=== PATIENT | female | born 1955 | race Caucasian/White ===

== ENCOUNTER → 2017-07-16 | Outpatient (CLI) | payer OTHER | LOC: ULTRA 12:58 → BC 12:58 | DX: R92.8 Other abnormal and inconclusive findings on diagnostic imaging of breast (principal); N63.20 Unspecified lump in the left breast, unspecified quadrant ==

== ENCOUNTER 2017-07-27 07:04 | Day surgery (SDC) | payer OTHER ==
[~2017-07-27] VITALS: Ht 170.2 cm; Wt 85.3 kg
--- NOTE | ~2017-07-27 | S ---
[facility] [address] [address] SURGICAL PATH RPT PROCEDURE Name: MILADY HASKINS Room #: DEP [facility] [place].R.#: [id number] Admission: 07/27/17 Date of : 53 Discharge: 07/27/17 Report #: [id number] Path Case #: [id number] PATHOLOGY REPORT DRAFT COLLECTION DATE: 07/27/2017 RECEIVED DATE: 07/27/2017 SPECIMEN(S) RECEIVED: A.Left breast mass
--- NOTE | ~2017-07-27 | O ---
[facility] [place] [address] OPERATIVE REPORT Name: MILADY HASKINS EVELYN Room #: DEP [facility] [place] M.R.#: [id number] Admission: 07/27/17 Attend Phys: Miki Moreno MD Discharge: 07/27/17 Date of : 53 Report #: [id number] THIS REPORT FOR: //name// CC: Miki Valentine MD PREOPERATIVE DIAGNOSIS: Left breast mass consistent with a large lipoma at the 6 o'clock position. POSTOPERATIVE DIAGNOSIS: Left breast mass/intramammary lipoma measuring 4 cm. PROCEDURES PERFORMED: Excision of left breast mass. ANESTHESIA: IV sedation, local 0.25% Marcaine. COMPLICATIONS: None. ESTIMATED BLOOD LOSS: 5 mL. PROCEDURE NOTE: With the patient under IV sedation, the left breast prepped and draped in sterile fashion. The mass is located at 6 o'clock position about 1/2 inch to an inch above the inframammary fold. To make the incision more cosmetic, an incision was made in the inframammary fold. The incision was then carried through the skin and subcutaneous tissue. A 0.25% Marcaine was used to dissect skin. The timeout was performed. The initial dissection was in the space just above the chest wall. It turned out the lipoma was not on the chest wall, but more superficially in the breast tissue. Dissection was carried into the breast and then a well defined lipoma was found. This lipoma was fairly mobile, was difficult to feel some points, but there is a distinct mass here. After dissecting the surface of the lipoma, the rest of it was found and easily delivered out of the breast. It measured about 4 cm. Towards the lateral aspect of it, it did kind of run into the breast tissue and part of the breast tissue was excised. Cautery was used for the dissection. Cautery was then used for hemostasis. The biopsy cavity was irrigated out. No bleeding was identified. Subcutaneous tissue was closed with 4-0 Monocryl. Skin was closed with 5-0 PDS running subcuticular fashion, Steri-Strips, 4 x 4's, Op-Site was used for dressing. The patient tolerated the procedure well and was taken to recovery room. <ELECTRONICALLY SIGNED> By: Miki Moreno MD 08/07/17 1310 [id number] Miki Moreno MD /nt
[~2017-07-27 07:04] MED LIST: ALDACTONE25 MG PO; LEXAPRO20 MG PO; MULTIVITAMINS1 EAC7 PO; OMEPRAZOLE 20 M20 M1 PO; SYNTHROID125 MC1 PO; WELLBUTRIN XL150 MG PO
[2017-07-27 09:30] LABS: HEMATOCRIT 42.4 % (37.0-47.0); HEMOGLOBIN 14.1 gm/dL (12.0-15.0)
[2017-07-27 09:37] LABS: CALCIUM 8.7 mg/dL (8.5-10.1); POTASSIUM 4.1 mmol/L (3.5-5.1)
[2017-07-27 10:42] VITALS: BP 129/84
[2017-07-27] MEDS ORDERED: NORCO 5-325 TA1 EACH PO (11:27)
[2017-07-27 11:46] VITALS: BP 129/84
== END 2017-07-27 12:30 | disposition home or self-care (01) ==
LOC: OR 07:04 → TBA 07:04 → OR 12:30
PROVIDERS: Surgery
DX: D17.79 Benign lipomatous neoplasm of other sites (principal); Z88.2 Allergy status to sulfonamides; F32.9 Major depressive disorder, single episode, unspecified; K21.9 Gastro-esophageal reflux disease without esophagitis; E03.9 Hypothyroidism, unspecified; Z98.890 Other specified postprocedural states
CPT/HCPCS: 50010; 50101; 50386; 50417; 56525; 56526; 62110; 62850; 70005

== ENCOUNTER → 2019-05-29 | Outpatient (CLI) | payer OTHER ==
[~2019-05-29] MED LIST changes: +NORCO 5-325 TA1 EACH PO
== END ==
LOC: RAD 10:44
DX: Z12.31 Encounter for screening mammogram for malignant neoplasm of breast (principal)

== ENCOUNTER → 2019-12-24 | Outpatient (CLI) | payer OTHER | LOC: CAT 10:38 | PROVIDERS: ATTEND Internal Medicine Hematology & Oncology | DX: C91.10 Chronic lymphocytic leukemia of B-cell type not having achieved remission (principal); K57.30 Diverticulosis of large intestine without perforation or abscess without bleeding; R59.0 Localized enlarged lymph nodes; D25.9 Leiomyoma of uterus, unspecified; M47.816 Spondylosis without myelopathy or radiculopathy, lumbar region ==

== ENCOUNTER → 2020-07-21 | Outpatient (CLI) | payer OTHER | LOC: BC 11:34 | PROVIDERS: ATTEND Neuromusculoskeletal Medicine & OMM | DX: Z12.31 Encounter for screening mammogram for malignant neoplasm of breast (principal) ==

== ENCOUNTER → 2021-05-18 | Outpatient (CLI) | payer OTHER | LOC: RAD 10:57 | PROVIDERS: ATTEND Nurse Practitioner | DX: J98.11 Atelectasis (principal); J90 Pleural effusion, not elsewhere classified ==

== ENCOUNTER → 2021-05-20 | Outpatient (CLI) | payer OTHER ==
[2021-05-20 13:17] LABS: HEMOGLOBIN 9.8 gm/dL (12.0-15.0); MCH 30.6 pg (26.0-34.0); RBC 3.22 mil/uL (4.20-5.00)
[2021-05-20 13:20] LABS: MCHC 30.8 g/dL (28.0-37.0); MCV 99.3 fL (80.0-100.0); RDW 19.2 % (10.5-14.5)
[2021-05-20 13:24] LABS: INR 1.08; PROTIME 11.7 Seconds (10.5-12.1)
[2021-05-20 13:40] LABS: WBC 258.8 thou/uL (4.0-11.0)
== END ==
LOC: ULTRA 12:06
PROVIDERS: ATTEND Nurse Practitioner
DX: R91.8 Other nonspecific abnormal finding of lung field (principal); J90 Pleural effusion, not elsewhere classified

== ENCOUNTER 2021-05-25 17:54 | Inpatient (IN) | payer OTHER ==
[~2021-05-25] VITALS: Ht 167.6 cm; Wt 74.8 kg
[~2021-05-25 17:54] MED LIST changes: -MULTIVITAMINS1 EAC7 PO; +SUPER THERAVIT1 EACH PO
[2021-05-25 18:11] VITALS: BP 112/61
--- NOTE | 2021-05-25 18:29 | NUR ---
PT REPORTS DX OF CLL, AWAITING ONCOLOGY APT ON 05/31.
[2021-05-25 18:55] LABS: APTT 30.2 Seconds (24.5-32.8); INR 1.09; PROTIME 11.8 Seconds (10.5-12.1)
[2021-05-25 19:01] LABS: HEMOGLOBIN 9.3 gm/dL (12.0-15.0); MCH 30.3 pg (26.0-34.0); RBC 3.07 mil/uL (4.20-5.00); RDW 19.7 % (10.5-14.5)
[2021-05-25 19:08] LABS: ALBUMIN 3.5 g/dL (3.4-5.0); CALCIUM 8.7 mg/dL (8.5-10.1); MAGNESIUM 2.2 mg/dL (1.8-2.4); TOTAL BILIRUBIN 0.4 mg/dL (0.2-1.0)
[2021-05-25 19:18] LABS: POTASSIUM 7.9 mmol/L (3.5-5.1)
[2021-05-25 20:14] LABS: WBC 308.8 thou/uL (4.0-11.0)
[2021-05-25] MEDS ORDERED: VALACYCLOVIR1000 MG PO (21:35)
[2021-05-25] MEDS ORDERED: ROSUVASTATIN CA10 MG PO (21:35)
[2021-05-25] MEDS ORDERED: SERTRALINE HCL100 MG PO (21:35)
[2021-05-25 22:43] VITALS: BP 124/64
[2021-05-26 02:56] VITALS: BP 109/56
--- NOTE | 2021-05-26 04:49 | NUR ---
PT ADMITTED TO 3W ROOM 353, ARRIVED TO UNIT AT APPROX 2345 ACCOMPANIED BY ED STAFF. ADMISSION ASSESSMENTS CHARTED, ADMISSION PACKET PROVIDED. PT IS A&OX4 AND ABLE TO COMMUNICATE ALL WANTS AND NEEDS TO STAFF. PT IS AMBULATORY, STEADY GAIT NOTED WITHOUT THE USE OF ASSISTIVE DEVICES. PT WITH KNOWN HISTORY OF CHRONIC LYMPHOCYTIC LEUKEMIA AND RECURRING PLEURAL EFFUSIONS. SHE DOES HAVE C/O SHORTNESS OF AIR, THOUGH AT THIS TIME IS NOT REQUIRING SUPPLEMENTAL OXYGEN, MAINTAINING O2 SATS 91-95% ON ROOM AIR. IV ANTIBIOTICS RUNNING THROUGHOUT THE SHIFT. PT HAS SLEPT MOST OF THE NIGHT SINCE ARRIVING TO THE UNIT. VS HAVE REMAINED STABLE THROUGHOUT THE SHIFT. WILL CONTINUE TO OBSERVE FOR CHANGES
[2021-05-26 05:19] LABS: CALCIUM 7.7 mg/dL (8.5-10.1)
[2021-05-26 05:21] LABS: HEMATOCRIT 24.8 % (37.0-47.0); HEMOGLOBIN 7.6 gm/dL (12.0-15.0); MCHC 30.8 g/dL (28.0-37.0); MCV 100.5 fL (80.0-100.0); RBC 2.46 mil/uL (4.20-5.00); RDW 19.7 % (10.5-14.5)
[2021-05-26 05:37] LABS: WBC 253.6 thou/uL (4.0-11.0)
--- NOTE | 2021-05-26 07:07 | EKG ---
[address] [place] [address] ELECTROCARDIOGRAM REPORT Name: HASKINSMILADYISABELLA RIVAS Room #: 353-P ADM IN M.R.#: [id number] Admission: 05/25/21 Attend Phys: Tho Morley MD Discharge: Date of : 53 Report #: [id number] [facility] ED Test Date: 2021-05-25 Test Time: 18:23:18 Pat Name: MILADY HASKINS Department: Room: [facility] Gender: F Clamshell Engineer: : 1955 Requested By: Mariaelena Clayton Order Number: [id number] MD: Roosevelt Sotelo Measurements Intervals [place] Rate: 100 P: 54 RI: 145 QRS: -33 QRSD: 77 T: 22 QT: 391 QTc: 505 Interpretive Statements Sinus tachycardia Multiple ventricular premature complexes Left axis deviation Anteroseptal infarct, age indeterminate No previous ECG available for comparison Electronically Signed On 05-26-2021 7:07:39 MANAGER WASTEWATER by Roosevelt Soetlo [email or web address] <ELECTRONICALLY SIGNED> By: Roosevelt Sotelo MD, [facility] 05/26/21 0707 1823 22 Roosevelt Sotelo MD, FACC /EPI
[2021-05-26 08:30] VITALS: BP 130/65
--- NOTE | 2021-05-26 10:18 | NUR ---
RD consult received for high nutrition screening risk. Admit with CLL, acute respiratory failure, weakness. Pt reports fair appetite but did eat 100% of gambian toast and sausage this am. Asking for coffee-has heart healthy diet order-will change diet to regular. Reports gradual wt loss 20 lb over past year=11% moderate loss. Would like to try just 1 ensure per day. Low nutrition risk with appropriate nutrition interventions in place
[2021-05-26 11:33] VITALS: BP 102/44
--- NOTE | 2021-05-26 15:33 | NUR ---
PER MITCHEL, KB INITIAL ASSESSMENT: MITCHEL spoke with nursing and attending physician. Pt was admitted from home due to dyspnea, anemia, pleural effusion. Pt with hx of leukemia. Hem/onc, pulm and CTS consulted. Chest tube placed today. Pt had recent hospital stay at [facility]. Per nursing, pt is alert/orientated and lives at home. MITCHEL placed call to pt's room. No answer. Therapy evals ordered to assess for discharge needs. MITCHEL is following to assist as needed with discharge planning. SESAR Chacon
[2021-05-26 15:56] VITALS: BP 113/54
[2021-05-26 16:28] LABS: % SATURATION 15 % (20-39); IRON 43 ug/dL (50-170); TIBC 291 ug/dL (250-450)
[2021-05-26 17:48] LABS: OBSERVED RETIC COUNT 3.23 % (0.6-2.6)
[2021-05-26 17:52] LABS: HEMATOCRIT 29.5 % (37.0-47.0); HEMOGLOBIN 8.9 gm/dL (12.0-15.0)
[2021-05-26 19:45] VITALS: BP 129/56
[2021-05-26 20:31] LABS: FOLIC ACID 24.6 ng/mL (8.6-58.9)
[2021-05-27 04:05] VITALS: BP 123/52
--- NOTE | 2021-05-27 05:41 | NUR ---
PT IS PROGRESSING SLOWLY TOWARD GOALS. PT WITH CHEST TUBE IN PLACE TO RIGHT POSTERIOR CHEST, DRAINING SANGUINEOUS DRAINAGE. PT WITH C/O PAIN AT CHEST TUBE SITE, MEDICATED X1 WITH NORCO WITH MINIMAL EFFECT, X1 WITH MORPHINE WITH GOOD EFFECT. PT STATED SHE "GOT SOME GOOD SLEEP LAST NIGHT." A&OX4, ANXIOUS, ABLE TO MAKE WANTS AND NEEDS KNOWN TO STAFF. SBA/SUPERVISION WITH TRANSFER, VOIDING PER BEDSIDE COMMODE DUE TO CHEST TUBE AND IV'S RUNNING. VSS THROUGHOUT THE SHIFT.
--- NOTE | 2021-05-27 07:21 | HC ---
[facility] [place] [address] CONSULTATION Name: MILADY HASKINS EVELYN Room #: 353-P ADM IN M.R.#: [id number] Admission: 05/25/21 Attend Phys: Tho Morley MD Discharge: Date of : 53 Report #: [id number] THIS REPORT FOR: cc: Lisbeth Biswas Beth RNP McKittrick, Richard James MD ~ cc: Tho Morley MD, Yan Valentine MD, Pasha Garcia MD DATE OF SERVICE: 05/26/2021 REASON FOR CONSULTATION: History of CLL. HISTORY OF PRESENT ILLNESS: The patient is a 66-year-old female who has been a patient of [facility] for about a year and a half. She was originally diagnosed with her CLL in 11/2019. Note that she has an IgH-V, not mutation, which is an adverse prognostic factor. At the time of diagnosis, her initial white count was around 29,000, hemoglobin 15.1 and platelets 256. She has not required therapy. She had been having progressive disease and we are getting ready to start a medicine called acalabrutinib in the near future, but she has been admitted at [facility] about 3 weeks ago, discharged on 05/10/2021. There, she was seen for shortness of air after being transferred from [facility]. She was found to have a right pleural effusion, which was loculated and possible pneumonia. She had a thoracentesis one time. When she was initially admitted there, her white count was about 300,000 and it was down to about 269,000. When she left there, her hemoglobin was 8.2 and platelets 318. Creatinine was 0.8. The patient denies fevers, chills, she does have the shortness of air, mostly a nonproductive cough, though not a big cough. No swallowing trouble. No arm or leg swelling. No diarrhea, no constipation. PAST MEDICAL HISTORY: Notable for recent HSV infection, hypothyroidism, the CLL, vitamin D deficiency, mood disorder and GERD. She also has a history of arthritis. SOCIAL HISTORY: about 3 years ago. He had worked for the [employer]. She is a never smoker. She drinks maybe two beverages per week. Not currently working. SURGICAL HISTORY: She has a history of tonsillectomy, partial thyroidectomy, lipoma resection, both knee replacements, colonoscopy and ankle surgery in the past. FAMILY HISTORY: Notable for mother with arthritis and migraines, father had colon cancer, sister had breast cancer and colon cancer. Paternal grandfather, heart disease. Maternal aunt, cancer of the breast. Paternal aunt, cancer of [address] [address] CONSULTATION Name: HASKINSMILADY EVELYN Room #: 353-P [facility] IN M.R.#: [id number] Admission: 05/25/21 Attend Phys: Tho Morley MD Discharge: Date of : 53 Report #: [id number] the breast. PHYSICAL EXAMINATION: GENERAL: The patient appears her stated age. VITAL SIGNS: Her height is 5 feet 6 or 167.6 cm, weight is 160 pounds or 72.57 kilograms. Recent blood pressure is 109/56, O2 sat 95%, respirations 20, pulse 104, temperature 98.4. MOOD: She is pleasant, alert, slightly anxious, appropriately so. HEENT: Face is symmetrical. NEUROLOGIC: Speech and thought pattern normal. Moving arms and legs. NECK: Does have some small lymph nodes in her neck and also underneath each axilla. ABDOMEN: Soft, no masses, nontender. LUNGS: Has dull sounds, right lung base. Good aeration. No use of accessory muscles, not in extremis. EXTREMITIES: Without clubbing, cyanosis or edema. LABORATORY DATA: Lab review here, has a creatinine of 1.0. Transaminases are normal. Alkaline phosphatase was 154, coags were normal. White count was 308, today 253.6; hemoglobin was 9.3, after hydration 7.6; MCV 100.5; platelets 335. Influenza negative. COVID negative. MEDICATIONS: At this time in the hospital include IV fluids, atorvastatin, calcium 20 mg daily, sertraline 100 daily, bupropion XL 150 daily, valacyclovir 500 b.i.d., famotidine 20 b.i.d., vancomycin b.i.d., levothyroxine 62.5 mcg daily, budesonide respiratory therapy b.i.d., Zosyn q. 8, ipratropium, albuterol respiratory therapy q. 4 while awake, Tylenol p.r.n., Zofran p.r.n. ASSESSMENT AND PLAN: 1. Chronic lymphocytic leukemia. Would like to start acalabrutinib once the patient is stable and able to. We will also need to give allopurinol at that time. 2. Right-sided loculated pleural effusion. Await Pulmonary and Cardiothoracic Surgery's input whether VATS procedure is warranted. 3. Possible respiratory infection, currently receiving vancomycin and Zosyn. Defer to others. 4. Anemia. We will check iron, B12, folate, retic count, and LDH. Not transfuse unless below 7 or if needed before surgery. 5. Hyperlipidemia, statin. 6. Hypothyroid. Replace. 6. Herpes simplex virus infection. Prophylaxis, valacyclovir 500 b.i.d. [facility] [address] [place] [address] CONSULTATION Name: MILADY HASKINS EVELYN Room #: 353-P ADM IN M.R.#: [id number] Admission: 05/25/21 Attend Phys: Tho Morley MD Discharge: Date of : 53 Report #: [id number] 7. Gastroesophageal reflux disease. Pepcid. 8. Anxiety. Continues on Wellbutrin and Zoloft. We will follow with you. <ELECTRONICALLY SIGNED> By: Nader Dodd MD 05/27/21 0721 0834 [id number] Nader Dodd MD /nt
[2021-05-27 08:21] VITALS: BP 124/58
[2021-05-27 11:29] VITALS: BP 115/59
--- NOTE | 2021-05-27 14:29 | NUR ---
SW reviewed chart and spoke with nursing and attending physician. Pt had chest tube placed yesterday. Pt is on 2L of O2 and IV abx. No weekend discharge planned. Physical therapy has discharged pt. Pt lives at home with s/o. Plan is for pt to discharge home when medically stable. MITCHEL is following to assist as needed with discharge planning.
[2021-05-27 15:40] VITALS: BP 114/60
--- NOTE | 2021-05-27 15:56 | NUR ---
Dr. Garcia in to see patient. VERBAL order to switch to water seal on chest tube when patient is up walking around, then return to suction once in bed. Dr would like patient to get up and walk around.
[2021-05-27 19:34] VITALS: BP 128/53
[2021-05-28 03:46] VITALS: BP 112/60
--- NOTE | 2021-05-28 06:23 | NUR ---
Patiet is alert and oriented x4 this shift. Patient is on 2L of oxygen. Patient is CC/ Tele and has been running sinus rhythm this shift. Patient has a right sideded chest tube. Dressing is clean dry and itact. Suction is at -20. Patient has had good results out from the chest tube. Patient uses the bedside commode for toileting and has been continent this shift. Patient has an IV in her right ac and left wrist. patients IVs are both patent and saline locked. Patient will continue to be monitored.
[2021-05-28 07:30] VITALS: BP 122/67
[2021-05-28 11:07] VITALS: BP 115/55
[2021-05-28 11:33] LABS: BASOPHILS 0.1 % (0.0-2.0); EOSINOPHILS 0.5 % (0.0-3.0); RBC 2.56 mil/uL (4.20-5.00)
[2021-05-28 11:37] LABS: HEMATOCRIT 26.1 % (37.0-47.0); HEMOGLOBIN 7.9 gm/dL (12.0-15.0); MCH 30.9 pg (26.0-34.0); MCHC 30.3 g/dL (28.0-37.0); MONOCYTES 0.5 % (1.0-8.0); PLATELET COUNT 287 thou/uL (150-400); POLYS 4.9 % (36.0-66.0)
[2021-05-28 11:44] LABS: WBC 224.1 thou/uL (4.0-11.0)
[2021-05-28 11:51] LABS: CALCIUM 8.4 mg/dL (8.5-10.1); CREATININE 0.9 mg/dL (0.6-1.0); MAGNESIUM 2.3 mg/dL (1.8-2.4); POTASSIUM 4.3 mmol/L (3.5-5.1)
[2021-05-28 15:23] VITALS: BP 115/56
--- NOTE | 2021-05-28 18:22 | NUR ---
PT A/O X 4, PT OUT OF BED MOST OF SHIFT. FAMILY AT BEDSIDE. COMPLAINS OF PAIN WHERE CHEST TUBE IS PLACED. FALL PRECAUTIONS IN PLACE. WILL CONTINUE TO MONITOR.
[2021-05-29 05:11] VITALS: BP 115/46
--- NOTE | 2021-05-29 06:26 | NUR ---
PATIENT IS ALERT AND ORIENTED X4 THIS SHIFT. SHE IS ON 1L OF OXYGEN. PATIENT IS CC/ TELE AND HAS BEEN RUNNING SINUS RHYTHM THIS SHIFT. PATIENT BECAME ADGITATED WITH THIS RN EARLIER IN THE SHIFT WHEN PATIENT ASKED THIS RN TO REMOVE SOME OF HER TUBES/ WIRES SO SHE COULD REST BECAUSE SHE HAD HAD THEM IN LONG ENOUGH. THIS RN TRIED TO EDUCATE PATIENT ON THE IMPORTANCE OF LEAVING ALL HER TUBES/ WIRES ATTACHED TO HER PERSON BUT WAS BRUSHED OFF. ALL TUBES AND WIRES ARE IN TACT AND PATENT. PATIENT IS CONTENT OF URINE THIS SHIFT. JUDSON HAS NO SKIN ISSUES TO REPORT. DRESSING ON CHEST TUBE SITE IS CLEAN DRY AND INTACT. PATIENT HAS AN IV IN HER LEFT WRIST. IV IS PATENT AND SALINE LOCKED. PATIENT HAS HAD CONSISTENT LEVELS OF PAIN THIS SHIFT AND PAIN HAS BEEN TREATED ORDERED. PATIENT WILL CONTINUE TO BE MONITORED.
[2021-05-29 07:21] VITALS: BP 115/47
--- NOTE | 2021-05-29 09:02 | HC ---
[facility] [place] [address] CONSULTATION Name: MILADY HASKINS EVELYN Room #: 353-P ADM IN M.R.#: [id number] Admission: 05/25/21 Attend Phys: Tho Morley MD Discharge: Date of : 53 Report #: [id number] THIS REPORT FOR: cc: Lisbeth Biswas Beth RNP Forman, John M. MD ~ DATE OF SERVICE: 05/26/2021 We were asked to see the patient for a large right pleural effusion. HISTORY OF PRESENT ILLNESS: The patient is a 66-year-old with chronic lymphocytic leukemia. The patient states that she fell in March and sustained blunt chest trauma along with a blunt hip injury. The patient had a right-sided thoracentesis diagnosed approximately 2 weeks ago. Thoracentesis was done at [place] and 800 mL of fluid was aspirated. The patient states that she thought that the fluid was bloody appearing. The patient states that she has had a recrudescence of shortness of breath and came to this institution where a chest x-ray and CT scan show a large right pleural effusion that is somewhat loculated. Patient states that she was sent for thoracentesis, but this was not done as the provider thought that it would not resolve the collection. CT scan shows what appears to be loculated fluid collection largely in the right lateral chest with some component more medial and inferior. PAST HISTORY: Significant for chronic lymphocytic leukemia that Dr. Dodd has been treating. Other past history includes hypothyroidism, history of melanoma removal, multiple joint replacements. MEDICATIONS: At home includes levothyroxine, bupropion, omeprazole, vitamins, valacyclovir, sertraline, simvastatin. ALLERGIES: SULFA CAUSES ITCHING. SOCIAL HISTORY: Uses alcohol socially. REVIEW OF SYSTEMS: GENERAL: Denies fever or chills. EYES: Wears glasses. HEENT: Denies headache, hearing problems. RESPIRATORY: As mentioned, shortness of breath related to the trauma and effusion. CARDIAC: Denies angina. Did have chest pain related to the fall in March. GASTROINTESTINAL: Denies nausea, vomiting, diarrhea. GENITOURINARY: Denies urgency, frequency, blood. [facility] [address] [place] [address] CONSULTATION Name: MILADY HASKINS [facility] Room #: 353-P [facility].#: [id number] Admission: 05/25/21 Attend Phys: Tho Morley MD Discharge: Date of : 53 Report #: [id number] MUSCULOSKELETAL: Hip pain in March with fall. No other significant bone or joint complaints. NEUROLOGIC: No motor or sensory dysfunction. The fall appeared to be due to "clumsiness." HEMATOLOGIC: No bruisability or bleeding. ENDOCRINE: No goiter, no tremor. PHYSICAL EXAMINATION: GENERAL: The patient is lying in bed, appears comfortable. VITAL SIGNS: Temperature 39.6, heart rate 85, blood pressure 109/56, O2 sat 95 on room air. HEENT: No scleral icterus. No arcus. NECK: No bruit. No mass. CHEST: Decreased breath sounds, right chest. HEART: Rhythm regular, no murmur. ABDOMEN: Soft, no tenderness. VASCULAR: 2+ dorsalis pedis pulses bilaterally. EXTREMITIES: No clubbing, cyanosis or edema. SKIN: No rash or infection. NEUROLOGIC: No motor or sensory dysfunction. MUSCULOSKELETAL: No bone or joint asymmetry or deformity. PSYCHIATRIC: Oriented x 3 and appropriate. ASSESSMENT AND PLAN: The patient has large pleural effusion. It is not clear to me that most of this would not drain with a chest tube placement. I have reviewed the CT scan and radiology and have discussed interventional radiology placing a chest tube. They will attempt to do this later today and I can order lytic therapy if this is appropriate. Risks and details of this approach were discussed with the patient and contrasted with simply going to the operating room. This approach appears to be reasonable at the outset. We will follow along. Thank you for the consult. <ELECTRONICALLY SIGNED> By: Pasha Garcia MD 05/29/21 0901 0955 [id number] Pasha Garcia MD /nt
[2021-05-29 11:07] VITALS: BP 105/53
[2021-05-29 15:56] VITALS: BP 117/48
--- NOTE | 2021-05-29 18:10 | NUR ---
RESUMED PT CARE THIS AM. CHEST TUBE ATRIUM CHANGED OUT TODAY, 250 OUT THIS SHIFT. PT UP AMBULATING HALLWAY X 2 TODAY, STEADY ON FEET. OCCASIONAL COMPLAINTS OF PAIN WHERE CHEST TUBE IS INSERTED. FAMILY AT BEDSIDE. NO NEEDS AT THE MOMENT, WILL CONTINUE TO MONITOR.
[2021-05-29 19:38] VITALS: BP 124/52
[2021-05-30 05:01] VITALS: BP 130/59
--- NOTE | 2021-05-30 06:29 | NUR ---
Patient is alert and oriented x4. Patient is on room air. Patients dressing for right chest tube is clean dry and itact. Line for chest tube is clean dry and intact. Suction is at -20. Patient has an iv in her left wrist that is patent and saline locked. Patient will continue to be monitored.
[2021-05-30 07:41] VITALS: BP 111/56
[2021-05-30 11:21] VITALS: BP 120/58
--- NOTE | 2021-05-30 13:52 | NUR ---
SW reviewed chart and spoke with nursing and attending physician. Pt has chest tube in place. CTS following. SW met with pt at bedside. Introduced role of SW. Pt is alert/orientated x 4. Pt reports she lives at home with her friend. Prior to admission, pt was independent with ADLs. No use of DME. Pt sees Lisbeth Michael for primary care at [facility]. No hx of services or post-acute placement. Plan is for pt to discharge home when medically stable. No discharge needs anticipated at this time. SW is following to assist as needed with discharge planning.
--- NOTE | 2021-05-30 15:16 | NUR ---
ASSUMED CARE OF PT AT 0700. PT HAS BEEN WITHOUT DISTRESS. CHEST TUBE REMAINS IN PLACE WITH SCANT DRAINAGE. PT CONTINUES TO MOVE TOWARD GOALS OF [place].
[2021-05-30 16:45] VITALS: BP 123/68
--- NOTE | 2021-05-30 22:20 | NUR ---
PT WAS UP IN CHAIR AND TRANSFERED TO BED. INDEP STEADY GAIT. CHEST TUBE INTACT R SIDE. PT STATED SHE IS SENSITIVE TO ADHESIVE TAPE, TELE PADS ARE CAUSING IRRITATION AND NOW HAS SENSITIVE PADS. PALE SKIN TONE. IVF INTACT.
[2021-05-31 04:11] VITALS: BP 115/60
[2021-05-31 09:00] VITALS: BP 138/66
[2021-05-31] MEDS ORDERED: AMOX TR-K CLV1 EAC4 PO (10:14)
[2021-05-31 12:19] VITALS: BP 109/57
[2021-05-31 12:35] VITALS: BP 109/57
[2021-05-31 12:41] VITALS: BP 109/57
--- NOTE | 2021-05-31 14:12 | NUR ---
Pt dc'd to home today with orders for HH Rn f/u visits. Pt is agreeable but wants to use the same agency she had in the past. She can not recall the name and will call cm when she gets home today.
[2021-05-31 15:07] LABS: HEMATOLOGY COMMENTS Note: (())
--- NOTE | 2021-06-01 11:03 | NUR ---
HH referral and orders faxed to [facility], [facility], [facility], [facility] and [facility] . Duty Engineer also spoke with [facility] and [facility] neither go to [place]. [facility] and [facility] declined due to staffing. Awaiting a response from [facility].
== END 2021-05-31 14:08 | disposition home health service (06) | DRG 199 ==
LOC: ER 17:54 → 3W 20:59 → EROBS 20:59 → 3W 23:50
PROVIDERS: Internal Medicine Hematology & Oncology; Nurse Practitioner Family; ADMIT Internal Medicine; ATTEND Internal Medicine
PROC: 0W9930Z Drainage of Right Pleural Cavity with Drainage Device, Percutaneous Approach (ICD-10-PCS; principal; 2021-05-26)
DX: S27.2XXA Traumatic hemopneumothorax, initial encounter (principal); J96.01 Acute respiratory failure with hypoxia; C91.10 Chronic lymphocytic leukemia of B-cell type not having achieved remission; J91.8 Pleural effusion in other conditions classified elsewhere; Z20.822 Contact with and (suspected) exposure to COVID-19; K21.9 Gastro-esophageal reflux disease without esophagitis; F32.9 Major depressive disorder, single episode, unspecified; E89.0 Postprocedural hypothyroidism; Z96.653 Presence of artificial knee joint, bilateral; E87.5 Hyperkalemia; D64.9 Anemia, unspecified; M19.90 Unspecified osteoarthritis, unspecified site; B00.9 Herpesviral infection, unspecified; F41.9 Anxiety disorder, unspecified; R53.81 Other malaise; E78.5 Hyperlipidemia, unspecified; W18.39XA Other fall on same level, initial encounter; Y93.89 Activity, other specified; Y92.89 Other specified places as the place of occurrence of the external cause; Y99.8 Other external cause status; Z79.899 Other long term (current) drug therapy; Z87.81 Personal history of (healed) traumatic fracture; Z88.2 Allergy status to sulfonamides; Z80.0 Family history of malignant neoplasm of digestive organs; Z80.3 Family history of malignant neoplasm of breast; Z95.1 Presence of aortocoronary bypass graft
CPT/HCPCS: 10879